=== PATIENT | male | born 1950 ===

== ENCOUNTER 2018-06-01 04:46 | Emergency (ER) | payer SELFPAY ==
[2018-06-01 04:46] VITALS: BMI 30.2
[2018-06-01 04:59] VITALS: PULSE 88; TEMP 98.2
[2018-06-01] MEDS ORDERED: oxyCODONE 10 mg ER Tab (oxyCONTIN) PO STA (05:19)
--- NOTE | 2018-06-01 05:23 | ED PDOC ---
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 Patient was unable to fill rx for oxycodone/oxycontin due to monetary funds. Otherwise denies any change in level of pain/fevers/chills/vomiting/etc.) Past Medical History Reviewed: Historical Data, Nursing Documentation, Vital Signs Vital Signs: Last Vital Signs Temp 98.2 F 06/01/18 04:57 Pulse 88 06/01/18 04:57 Resp 16 06/01/18 04:57 BP 108/65 06/01/18 04:57 Pulse Ox 95 06/01/18 04:57 - Medical History PMH: Pancreatitis Denies: Anxiety Other PMH: Cirrhosis. - Family History Family History: States: Unknown Family Hx - Immunization History Hx Tetanus Toxoid Vaccination: No Hx Influenza Vaccination: No Hx Pneumococcal Vaccination: No - Home Medications Home Medications: Ambulatory Orders Medication Instructions Recorded Docusate [Colace] 100 mg PO BID #60 cap 05/11/18 Lidocaine 5% [Lidoderm] 1 ea TD DAILY #30 patch 05/11/18 amLODIPine [Norvasc] 5 mg PO DAILY #30 tab 05/11/18 Ondansetron HCl [Zofran] 4 mg PO Q8H PRN #30 tablet 05/12/18 Dexamethasone [Decadron] 4 mg PO DAILY #30 tab 05/30/18 Fludrocortisone [Florinef] 0.1 mg PO DAILY #30 tab 05/30/18 oxyCODONE [oxyCODONE Immediate 10 mg PO Q4 PRN #84 tab 05/30/18 Release Tab] oxyCODONE [oxyCONTIN Extended 60 mg PO Q8H #42 tabsr 05/30/18 Release Tab] - Allergies Allergies/Adverse Reactions: Allergies Allergy/AdvReac Type Severity Reaction Status Date / Time No Known Allergies Allergy Verified 06/01/18 04:57 Review of Systems ROS Statement: Except As Marked, All Systems Reviewed And Found Negative Physical Exam - Reviewed Nursing Documentation Reviewed: Yes Vital Signs Reviewed: Yes - Physical Exam Appears: Positive for: Well, Non-toxic, No Acute Distress Head Exam: Positive for: ATRAUMATIC, NORMAL INSPECTION, NORMOCEPHALIC Skin: Positive for: Normal Color, Warm, DRY Eye Exam: Positive for: EOMI, Normal appearance, PERRL ENT: Positive for: Normal ENT Inspection Neck: Positive for: Normal, Painless ROM Cardiovascular/Chest: Positive for: Regular Rate, Rhythm Respiratory: Positive for: CNT, Normal Breath Sounds Gastrointestinal/Abdominal: Positive for: Normal Exam, Soft, Tenderness (left sided tenderness mild) Back: Positive for: Normal Inspection Extremity: Positive for: Normal ROM Neurologic/Psych: Positive for: Alert, Oriented - ECG O2 Sat by Pulse Oximetry: 95 - Progress ED Course And Treament: d/w Family med resident. They will call tomorrow to arrange for followup and assist socially. d/w patient that he can buy few pills at a time if medication is expensive. Will given one dose oxycontin 60mg / DECADRON 4MG/ FLORINEF 0.1MG in ED prior to d/c Disposition - Clinical Impression Clinical Impression: Adrenal hemorrhage - Patient ED Disposition Is Patient to be Admitted: No - Disposition Disposition: Routine/Home Disposition Time: 05:25 Condition: FAIR Additional Instructions: SHAKEEL DECADRON Y FLORINEF SHERRI GALVAN Instructions: Chronic Pain (DC) Print Language: KYRGYZ
[2018-06-01] MEDS ORDERED: oxyCODONE 20 mg ER Tab (oxyCONTIN) PO ONE (05:31)
[2018-06-01 06:16] VITALS: BP 121/78; RESP 20; O2SAT 96
== END 2018-06-01 06:31 | disposition home or self-care (01) ==
LOC: H.ER 04:46
DX: E27.49 Other adrenocortical insufficiency (principal); K74.60 Unspecified cirrhosis of liver; K85.90 Acute pancreatitis without necrosis or infection, unspecified
CPT/HCPCS: 99283; J8540

== ENCOUNTER 2018-06-04 09:46 | Observation (INO) | payer OTHER ==
[2018-06-04 09:52] VITALS: BMI 26.6
--- NOTE | 2018-06-04 10:53 | ED PDOC ---
HPI: Back Time Seen by Provider: 06/04/18 10:22 Chief Complaint (Nursing): Back Pain Chief Complaint (Provider): flank pain History Per: Patient (68 y/o male h/o adrenal mass with subsequent hemorrhage s/p biopsy here with ongoing abdominal pain uncontrolled by oxycontin/percocet at home. Notes vomiting. Denies any fevers/chills.) Past Medical History Reviewed: Historical Data, Nursing Documentation, Vital Signs Vital Signs: Last Vital Signs Temp 98 F 06/04/18 09:50 Pulse 82 06/04/18 09:50 Resp 22 06/04/18 09:50 BP 109/78 06/04/18 09:50 Pulse Ox 97 06/04/18 09:50 - Medical History PMH: Pancreatitis Denies: Anxiety - Family History Family History: States: Unknown Family Hx - Immunization History Hx Tetanus Toxoid Vaccination: No Hx Influenza Vaccination: No Hx Pneumococcal Vaccination: No - Home Medications Home Medications: Ambulatory Orders Medication Instructions Recorded Docusate [Colace] 100 mg PO BID #60 cap 05/11/18 Lidocaine 5% [Lidoderm] 1 ea TD DAILY #30 patch 05/11/18 amLODIPine [Norvasc] 5 mg PO DAILY #30 tab 05/11/18 Ondansetron HCl [Zofran] 4 mg PO Q8H PRN #30 tablet 05/12/18 Dexamethasone [Decadron] 4 mg PO DAILY #30 tab 05/30/18 Fludrocortisone [Florinef] 0.1 mg PO DAILY #30 tab 05/30/18 oxyCODONE [oxyCODONE Immediate 10 mg PO Q4 PRN #84 tab 05/30/18 Release Tab] oxyCODONE [oxyCONTIN Extended 60 mg PO Q8H #42 tabsr 05/30/18 Release Tab] - Allergies Allergies/Adverse Reactions: Allergies Allergy/AdvReac Type Severity Reaction Status Date / Time No Known Allergies Allergy Verified 06/01/18 04:57 Review of Systems ROS Statement: Except As Marked, All Systems Reviewed And Found Negative Physical Exam - Reviewed Nursing Documentation Reviewed: Yes Vital Signs Reviewed: Yes - Physical Exam Appears: Positive for: Well, Non-toxic, No Acute Distress Head Exam: Positive for: ATRAUMATIC, NORMAL INSPECTION, NORMOCEPHALIC Skin: Positive for: Normal Color, Warm, DRY Eye Exam: Positive for: EOMI, Normal appearance, PERRL ENT: Positive for: Normal ENT Inspection Neck: Positive for: Normal, Painless ROM Cardiovascular/Chest: Positive for: Regular Rate, Rhythm Respiratory: Positive for: CNT, Normal Breath Sounds Gastrointestinal/Abdominal: Positive for: Normal Exam, Soft Back: Positive for: Normal Inspection Extremity: Positive for: Normal ROM Neurologic/Psych: Positive for: Alert, Oriented - Laboratory Results Result Diagrams: 06/04/18 11:55 06/04/18 11:55 - ECG O2 Sat by Pulse Oximetry: 97 - Progress ED Course And Treament: MORPHINE 4 MG IV WITHOUT RELIEF DILAUDID 1 MG IV X 1 DOSE NS 1L ITER WIDE OPEN PATIENT STATES PERSISTENT PAIN AND VOMITING DESPITE MEDICATION. D/W HOSPITALIST DR. MARTINEZ CT ABD/PELVIS IMPRESSION: 1. Potential benign adrenal adenoma right adrenal gland 7.5 cm greatest dimension. Due to elevated initial precontrast density, malignancy is difficult to exclude. Chemical shift MRI is advised (without contrast) to exclude malignancy. 2. Large left adrenal favored over renal hemorrhagic mass of indeterminate origin. Associated left cece-mass and perinephric reactive changes without obstructive uropathy left kidney. Urological consultation is advised to exclude malignancy here. MRI will not likely be usual in attempting to determine ag gressive or nonaggressive nature of this lesion. 3. Gross hepatic cirrhosis with multifocal varices as discussed above. 4. Peritoneal lymphadenopathy suspicious for malignancy. 5. Cholelithiasis. 6. Nonspecific ground-glass opacity right middle and lower lobes. Disposition - Clinical Impression Clinical Impression: Abdominal pain - Patient ED Disposition Is Patient to be Admitted: Yes - Disposition Disposition Time: 20:43 Condition: FAIR - Pt Status Changed To: Hospital Disposition Of: Observation
[2018-06-04] MEDS ORDERED: Iohexol 240 (50 ml) PO STA (10:57)
[2018-06-04] MEDS ORDERED: Sodium Chloride 0.9% 1,000 ML IV STA ×2 (10:59→20:42)
[2018-06-04] MEDS ORDERED: Morphine 4 MG/ML VIAL ONE (11:19)
[2018-06-04] MEDS ORDERED: Iohexol 240 (50 ml) ONE (11:19)
[2018-06-04 12:15] LABS: EOS % 0.2 % (0.0-4.0); HEMOGLOBIN 11.8 g/dL (12.0-18.0); LYMPH # 0.9 K/uL (1.0-4.3); LYMPH % 9.2 % (20.0-40.0); MEAN CELL VOLUME 91.2 fl (80.0-94.0); MEAN CORPUSCULAR HEMOGLOBIN 30.8 pg (27.0-31.0); MEAN CORPUSCULAR HGB CONC 33.8 g/dL (33.0-37.0); MEAN PLATELET VOLUME 8.4 fl (7.2-11.7); MONO # 0.9 K/uL (0.0-0.8); MONO % 9.6 % (0.0-10.0); NEUT # 7.8 K/uL (1.8-7.0); NRBC % 0.2 % (0.0-0.0); PLATELET COUNT 136 K/uL (130-400); RBC 3.83 Mil/uL (4.40-5.90); RED CELL DISTRIBUTION WIDTH 15.2 % (11.5-14.5); WHITE BLOOD COUNT 9.6 K/uL (4.8-10.8)
[2018-06-04 12:20] LABS: ALB/GLOB RATIO 0.6 (1.0-2.1); ALBUMIN 2.8 g/dL (3.5-5.0); ALT/SGPT 50 U/L (21-72); AST/SGOT 70 U/L (17-59); BLOOD UREA NITROGEN 21 mg/dl (9-20); GFR NON-AFRICAN AMERICAN > 60; LIPASE 38 U/L (23-300)
[2018-06-04 13:23] LABS: LYMPHOCYTE 7 % (20-50); MONOCYTE 11 % (0-10); NEUTROPHIL 82 % (42-75); PLATELET ESTIMATE SLIGHTLY DECREASED (NORMAL); TOTAL CELLS COUNTED 100
[2018-06-04 13:24] LABS: ANISOCYTOSIS SLIGHT; OVALOCYTES SLIGHT
[2018-06-04 13:25] LABS: LARGE PLATELETS PRESENT
[2018-06-04] MEDS ORDERED: Sodium Chloride 0.9% 50 ML IV ONE (14:01)
[2018-06-04] MEDS ORDERED: Iohexol 300 100 ML IJ ONE (14:01)
--- NOTE | 2018-06-04 17:09 | CT ---
Date of service: 06/04/2018 PROCEDURE: CT Abdomen and Pelvis with and without intravenous contrast HISTORY: adrenal mass w/hemorrhage incr in pain COMPARISON: None. TECHNIQUE: Axial images of the abdomen were obtained in the pre contrast, portal venous and delayed phases of enhancement. Coronal and sagittal reformats were generated. Contrast dose: Omnipaque 300, 95 cc Radiation dose: Total exam DLP = 2230.25 mGy-cm. This CT exam was performed using one or more of the following dose reduction techniques: Automated exposure control, adjustment of the mA and/or kV according to patient size, and/or use of iterative reconstruction technique. FINDINGS: LOWER THORAX: Ground-glass opacity is seen at the right lower lobe and minimally at the base of the right middle lobe with the left lung remarkable only for dependent atelectasis. No pleural effusion. Minimal pericardial effusion appreciated inferiorly. Small hiatal hernia is encountered. LIVER: Gross peripheral nodularity and mild hepatic parenchymal inhomogeneity is compatible with cirrhotic liver. Gastrohepatic, splenorenal and esophageal varices are identified compatible with hepatofugal blood flow. No definitive hepatic mass appreciable. GALLBLADDER AND BILE DUCTS: Cholelithiasis identified within a distended gallbladder without mural thickening or pericholecystic fluid collection accompanying it. No prominence of the common bile duct identified. PANCREAS: Pancreas is intrinsically unremarkable but is displaced anteriorly by a large mass likely related to left adrenal gland though this may be exophytic off the upper pole left kidney (not favored). No definite intrinsic SPLEEN: Mass appreciated grossly. ADRENALS: RIGHT ADRENAL GLAND: The right adrenal gland is enlarged measuring 4.2 x 7.5 x 6.0 cm and appears relatively homogeneous in density and measures 37 Hounsfield units prior to contrast administration. It measures 40 Hounsfield units in the 30 sec delay post intravenous contrast administration and 47 Hounsfield units after an additional 5 min. Its peripheral margins are smooth. Malignancy is not excluded and the pattern is not typical for benign adenoma although this could be a very low fat content adrenal adenoma nevertheless. Calcific MRI is recommended (without contrast) to evaluate for possible benign adrenal adenoma. LEFT ADRENAL GLAND: Adrenal gland is likely enlarged to 11.1 x 12.1 x 13.3 cm with limited cece-mass reactive change accounting for the patient's symptoms. Heterogeneous signal intensity is appreciated in both preliminary and post contrast sequences, however, there is no significant change in density measurements with preliminary density of 53 HU and early contrast enhancement density of 52 HU and delayed, density of proximally 58 HU. Similar to the right adrenal gland mass, the ultimate diagnosis indeterminate. The pattern of heterogeneity in density is likely a function of adrenal hemorrhage within pre-existing mass, potentially a benign adrenal adenoma. The presence of retroperitoneal lymphadenopathy, urological consultation is recommended for potential tissue diagnosis. KIDNEYS AND URETERS: No suspicious mass or obstructive uropathy is appreciated the right kidney with the left kidney exhibiting normal renal excretory function and enhancement. Peripheral reactive changes seen associate with the left kidney presumably from left upper retroperitoneal mass presumed due to adrenal rather than renal mass. Please see left renal discussion above. Limited possibility that this is an exophytic mass off the upper to mid pole left kidney. VASCULATURE: Unremarkable. No aortic aneurysm. BOWEL: Unremarkable. No obstruction. No gross mural thickening. APPENDIX: Normal appendix. Six point PERITONEUM: Unremarkable. No free fluid. No free air. LYMPH NODES: Moderate retroperitoneal lymphadenopathy is appreciated including an aortic caval lymph node measuring 3.4 x 3.1 cm and adjacent enlarged lymph nodes with the next largest measuring 2.7 cm. Finally, a left perirenal lymph node measures 2.7 x 3.5 cm potentially. Alternately, this may represent a segment of isolated splenorenal varix. BLADDER: Unremarkable. REPRODUCTIVE: Enlarged prostate gland. BONES: No acute fracture. OTHER FINDINGS: None. IMPRESSION: 1. Potential benign adrenal adenoma right adrenal gland 7.5 cm greatest dimension. Due to elevated initial precontrast density, malignancy is difficult to exclude. Chemical shift MRI is advised (without contrast) to exclude malignancy. 2. Large left adrenal favored over renal hemorrhagic mass of indeterminate origin. Associated left cece-mass and perinephric reactive changes without obstructive uropathy left kidney. Urological consultation is advised to exclude malignancy here. MRI will not likely be usual in attempting to determine aggressive or nonaggressive nature of this lesion. 3. Gross hepatic cirrhosis with multifocal varices as discussed above. 4. Peritoneal lymphadenopathy suspicious for malignancy. 5. Cholelithiasis. 6. Nonspecific ground-glass opacity right middle and lower lobes.
[2018-06-04 20:38] LABS: SQUAMOUS EPITHIAL < 1 /hpf (0-5); URINE BACTERIA RARE (<OCC); URINE BILIRUBIN NEGATIVE (NEGATIVE); URINE BLOOD NEGATIVE (NEGATIVE); URINE CLARITY SLIGHTY-CLOUDY (Clear); URINE COLOR YELLOW (YELLOW); URINE GLUCOSE (UA) NEG (Normal); URINE LEUKOCYTE ESTERASE NEG Leu/uL (Negative); URINE PROTEIN NEGATIVE (NEGATIVE)
--- NOTE | 2018-06-04 21:05 | CP.PCM.HP ---
Addendum entered and electronically signed by Johann Hernandez MD 06/04/18 22:58: I saw and examined this patient and reviewed all relevant data. I discussed and formulated the plan with Dr. Tovar as detailed below. Briefly, patient comes in with intractable abd/flank pain, n/v. Imaging shows b/l adrenal masses and cirrhosis, which is consistent with information and imaging at [facility] earlier this month on 05/09. The patient had come with similar symptoms, had a workup of the masses that showed myogenic sarcoma, and oncology at the time indicated that there were no treatment options available. Patient was also believed to have adrenal insufficiency a the time and started on Decadron and Florinef. Original Note: History of Present Illness - History of Present Illness History of Present Illness: LINDSEY INT# [id number] CC: I have bad left side pain HPI: 68 y/o male, with PMHx remarkable for anemia, HTN, Liver Cirrhosis, Adrenal mass/hemorrhage (myogenic sarcoma?) and whom is status post bilateral adrenal biopsy on 05/19/2018 presented to ER for evaluation of constant left flank pain. Pain started after biopsy, and pt was prescribed pain meds (oxycodone 60mg SIMONA and 10mg PRN) but these have not been controlling his symptoms. There has been no improvement in the pain since discharge earlier this month. He has not followed up with a primary since. The pain became unbearable today, w/o much improvement with meds, so he came for evaluation. The pain is located at his left flank, is 10/10, constant, radiates to his abdomen and right back. It is mildly alleviated with his pain medications, but aggravated by activity or once the affects of his meds wear off. It is associated with nausea. He denies any fever/chills, CP/V/D, hematuria, urinary freq/dysuria/pyuria/urgency. No other complaints. 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), denies drugs FamilyHx: unknown ED Course: Vitals: T 98.0 F, BP 109/78, HR 82, POX 97% RA CBC: 9.6>11.8/35.0<136 CMP: Ca 8.0, AST: 70, BUN/Cr: 21/0.6 UA: elevated spec gravity, no WBC, no LE/Nit Lipase: WNL CT: large left adrenal mass, R adrenal adenoma, possible malignancy, hepatic cirrhosis, peritneal lymph adenopathy, cholelithiasis Meds: zofran, morphine 4mg, Diladid 1mg, 500mg NS bolus, 70mls/hr mx NS Present on Admission - Present on Admission Any Indicators Present on Admission: No History of DVT/PE: No History of Uncontrolled Diabetes: No Urinary Catheter: No Decubitus Ulcer Present: No Review of Systems - Review of Systems Review of Systems: as per HPI Past Patient History - Infectious Disease Hx of Infectious Diseases: None - Past Medical History & Family History Past Medical History?: No - Past Social History Smoking Status: Never Smoked - HEMATOLOGICAL/ONCOLOGICAL Hx Blood Disorders: Yes Hx Cirrhosis: Yes - MUSCULOSKELETAL/RHEUMATOLOGICAL Hx Musculoskeletal Disorders: Yes Hx Falls: Yes - GASTROINTESTINAL Hx Pancreatitis: Yes - PSYCHIATRIC Hx Anxiety: No - SURGICAL HISTORY Other/Comment: left kidney biopsy - ANESTHESIA Hx Anesthesia: No Meds Allergies/Adverse Reactions: Allergies Allergy/AdvReac Type Severity Reaction Status Date / Time No Known Allergies Allergy Verified 06/01/18 04:57 Physical Exam - Constitutional Appears: Non-toxic, No Acute Distress - Head Exam Head Exam: ATRAUMATIC, NORMOCEPHALIC - Eye Exam Eye Exam: EOMI. absent: Scleral icterus Pupil Exam: PERRL - ENT Exam ENT Exam: Mucous Membranes Moist - Neck Exam Neck exam: Negative for: Lymphadenopathy - Respiratory Exam Respiratory Exam: Clear to Auscultation Bilateral, NORMAL BREATHING PATTERN. absent: Accessory Muscle Use, Rales, Rhonchi, Wheezes, Respiratory Distress - Cardiovascular Exam Cardiovascular Exam: REGULAR RHYTHM, RRR, +S1, +S2. absent: Tachycardia, JVD, Rubs, Systolic Murmur - GI/Abdominal Exam GI & Abdominal Exam: Guarding (voluntary guarding ), Normal Bowel Sounds, Soft, Tenderness (left sided tenderness ). absent: Rebound, Rigid - Extremities Exam Extremities exam: Positive for: normal capillary refill, normal inspection, pedal pulses present. Negative for: pedal edema, tenderness - Back Exam Back exam: CVA tenderness (L) - Neurological Exam Neurological exam: Alert, CN II-XII Intact, Oriented x3, Reflexes Normal - Skin Skin Exam: Dry, Normal Color, Warm Results - Vital Signs Recent Vital Signs: Last Vital Signs Temp 98 F 06/04/18 09:50 Pulse 82 06/04/18 09:50 Resp 22 06/04/18 09:50 BP 109/78 06/04/18 09:50 Pulse Ox 97 06/04/18 20:44 - Labs Result Diagrams: 06/04/18 11:55 06/04/18 11:55 Labs: Laboratory Results - last 24 hr 06/04/18 06/04/18 06/04/18 11:55 11:55 19:58 WBC 9.6 RBC 3.83 L Hgb 11.8 L Hct 35.0 MCV 91.2 MCH 30.8 MCHC 33.8 RDW 15.2 H Plt Count 136 MPV 8.4 Neut % (Auto) 81.0 H Lymph % (Auto) 9.2 L Winn % (Auto) 9.6 Eos % (Auto) 0.2 Baso % (Auto) 0.0 Neut # (Auto) 7.8 H Lymph # (Auto) 0.9 L Winn # (Auto) 0.9 H Eos # (Auto) 0.0 Baso # (Auto) 0.0 Neutrophils % (Manual) 82 H Lymphocytes % (Manual) 7 L Monocytes % (Manual) 11 H Platelet Estimate Slightly decreased L Large Platelets Present Anisocytosis (manual) Slight Macrocytosis (manual) Slight Ovalocytes Slight Sodium 133 Potassium 4.2 Chloride 102 Carbon Dioxide 27 Anion Gap 8 L BUN 21 H Creatinine 0.6 L Est GFR ( Amer) > 60 Est GFR (Non-Af Amer) > 60 Random Glucose 79 Calcium 8.0 L Total Bilirubin 1.1 AST 70 H D ALT 50 Alkaline Phosphatase 85 Total Protein 7.6 Albumin 2.8 L Globulin 4.8 H Albumin/Globulin Ratio 0.6 L Lipase 38 Urine Color Yellow Urine Clarity Slighty-cloudy Urine pH 7.0 Ur Specific [place] 1.032 H Urine Protein Negative Urine Glucose (UA) Neg Urine Ketones Negative Urine Blood Negative Urine Nitrate Negative Urine Bilirubin Negative Urine Urobilinogen 4.0 Ur Leukocyte Esterase Neg Urine RBC (Auto) 3 Urine Microscopic WBC 1 Ur Squamous Epith Cells < 1 Urine Bacteria Rare Assessment & Plan - Assessment and Plan (Free Text) Assessment: 68 y/o male, with history of HTN, Liver Cirrhosis, B/L adrenal masses, Myogenic sarcoma, admitted for intractable left flank pain Plan: 1) Intractable Left flank pain -CT reviewed, no hematoma, no renal calculi -No signs of infection -pain control, start 2mg Diladud, titrate up, c/w home meds PRN -control N/V: Zofran IV PRN -consider pain management evaluation 2) Adrenal Mass/Myogenic Sarcoma/S/P adrenal Bx -reviewed prior admission at [facility], pt was worked up and was supposed to go to [place] for treatment but never went -seen by Hem/on at [facility] (Dr. Ferris), poorly differentiated, no chemo available, likely will need palliative care as per prior records -consider hem/onc 3) Hypocalcemia -8.0 -asympotmatic -ionized Ca pending 4) Anemia of Unknown Etiology -prior labs reviewed, Iron studies, B12, Folate all WNL -H/H: 11.8/35.0 -stable -monitor 5) Transaminasemia: -stable -monitor 6) History of Adrenal Insuff -evalauted by Dr Queen at [facility] -c/w with corticosteroid treatment as per med rec 7) Hypertension -chronic -controlled -c/w Amlodipine 5mg QD -monitor 8) Diet -regular 9) Prophylaxis -SCQs -Lovenox 40mg SC QD 10) Code status -full code
[2018-06-04] MEDS ORDERED: oxyCODONE 10 mg Immediate Release Tab PO PRN (21:09)
[2018-06-04] MEDS: oxyCODONE 20 mg ER Tab (oxyCONTIN) PO SCH (23:26)
[2018-06-05 00:05] VITALS: RESP 20
[2018-06-05] MEDS: oxyCODONE 20 mg ER Tab (oxyCONTIN) PO SCH ×3 (05:15→17:16)
[2018-06-05] MEDS ORDERED: oxyCODONE 5 mg Immediate Release Tab PO PRN (06:00)
[2018-06-05 06:31] LABS: HEMOGLOBIN 11.9 g/dL (12.0-18.0); MEAN CELL VOLUME 91.1 fl (80.0-94.0); MEAN CORPUSCULAR HEMOGLOBIN 30.9 pg (27.0-31.0); MEAN CORPUSCULAR HGB CONC 33.9 g/dL (33.0-37.0); RBC 3.83 Mil/uL (4.40-5.90); RED CELL DISTRIBUTION WIDTH 15.1 % (11.5-14.5); WHITE BLOOD COUNT 10.6 K/uL (4.8-10.8)
[2018-06-05 07:42] LABS: BLOOD UREA NITROGEN 16 mg/dl (9-20); CALCIUM 7.7 mg/dL (8.4-10.2); GFR NON-AFRICAN AMERICAN > 60
[2018-06-05] MEDS ORDERED: Lidocaine 5% Patch TD SCH (09:00)
[2018-06-05] MEDS ORDERED: Enoxaparin 40 mg Syringe SC SCH (09:00)
--- NOTE | 2018-06-05 12:44 | CP.PCM.DIS ---
Addendum entered and electronically signed by Rachelle Conway MD 06/05/18 14:05: Patient was seen and examined . All chart and clinical data reviewed . Care resumed . Case discussed with resident . Agree with assessment and discharge planning 68 y/o male was recently discharged from [facility] 05/30 after being worked up and diagnosed with ADRENAL GLAND CARCINOMA patient presented to ER with abdominal pain . He was placed under observation for pain management . At present hemodynamically stable, afebrile, pain is controlled , tolerating diet . Will discharge patient home on pain prescription for Oxycontin IR and Oxycodone ER Advice to follow up with [facility] as referred by [facility] Advised to get second opinion from [facility] [place] Will discharge patient home in replaced by [facility] econditions Original Note: Provider - Provider Date of Admission: 06/04/18 20:41 Attending physician: Johann Hernandez MD Primary care physician: None Consults: None Time Spent in preparation of Discharge (in minutes): 40 Diagnosis - Discharge Diagnosis (1) Acute abdominal pain in left flank Status: Acute Comment: S/p Left adrenal gland Bx in [facility] (2) Mass of both adrenal glands Status: Chronic Comment: Seen by Hem-Onc at [facility]. C/w follow ups and recommendations (3) Hypocalcemia Status: Chronic (4) Anemia of unknown etiology Status: Chronic (5) Transaminasemia Status: Chronic (6) Adrenal insufficiency Status: Chronic Comment: Evaluated by Dr. Queen at [facility]. C/w Dexamethasone 4 mg PO DAILY, Fludrocortisone 0.1 mg PO DAILY (7) Hypertension Status: Chronic Comment: c/w Amlodipine 5mg QD (8) Cirrhosis Status: Chronic Hospital Course - Lab Results Lab Results: Most Recent Lab Values WBC 10.6 K/uL (4.8-10.8) 06/05/18 05:45 RBC 3.83 Mil/uL (4.40-5.90) L 06/05/18 05:45 Hgb 11.9 g/dL (12.0-18.0) L 06/05/18 05:45 Hct 34.9 % (35.0-51.0) L 06/05/18 05:45 MCV 91.1 fl (80.0-94.0) 06/05/18 05:45 MCH 30.9 pg (27.0-31.0) 06/05/18 05:45 MCHC 33.9 g/dL (33.0-37.0) 06/05/18 05:45 RDW 15.1 % (11.5-14.5) H 06/05/18 05:45 Plt Count 118 K/uL (130-400) L 06/05/18 05:45 MPV 8.4 fl (7.2-11.7) 06/04/18 11:55 Neut % (Auto) 81.0 % (50.0-75.0) H 06/04/18 11:55 Lymph % (Auto) 9.2 % (20.0-40.0) L 06/04/18 11:55 Redwood % (Auto) 9.6 % (0.0-10.0) 06/04/18 11:55 Eos % (Auto) 0.2 % (0.0-4.0) 06/04/18 11:55 Baso % (Auto) 0.0 % (0.0-2.0) 06/04/18 11:55 Neut # (Auto) 7.8 K/uL (1.8-7.0) H 06/04/18 11:55 Lymph # (Auto) 0.9 K/uL (1.0-4.3) L 06/04/18 11:55 Redwood # (Auto) 0.9 K/uL (0.0-0.8) H 06/04/18 11:55 Eos # (Auto) 0.0 K/uL (0.0-0.7) 06/04/18 11:55 Baso # (Auto) 0.0 K/uL (0.0-0.2) 06/04/18 11:55 Neutrophils % (Manual) 82 % (42-75) H 06/04/18 11:55 Lymphocytes % (Manual) 7 % (20-50) L 06/04/18 11:55 Monocytes % (Manual) 11 % (0-10) H 06/04/18 11:55 Platelet Estimate Slightly decreased (NORMAL) L 06/04/18 11:55 Large Platelets Present 06/04/18 11:55 Anisocytosis (manual) Slight 06/04/18 11:55 Macrocytosis (manual) Slight 06/04/18 11:55 Ovalocytes Slight 06/04/18 11:55 Sodium 131 mmol/l (132-148) L 06/05/18 05:45 Potassium 4.9 MMOL/L (3.6-5.0) 06/05/18 05:45 Chloride 101 mmol/L (98-107) 06/05/18 05:45 Carbon Dioxide 25 mmol/L (22-30) 06/05/18 05:45 Anion Gap 10 (10-20) 06/05/18 05:45 BUN 16 mg/dl (9-20) 06/05/18 05:45 Creatinine 0.7 mg/dl (0.8-1.5) L 06/05/18 05:45 Est GFR ( Amer) > 60 06/05/18 05:45 Est GFR (Non-Af Amer) > 60 06/05/18 05:45 Random Glucose 75 mg/dL (75-110) 06/05/18 05:45 Calcium 7.7 mg/dL (8.4-10.2) L 06/05/18 05:45 Total Bilirubin 1.1 mg/dl (0.2-1.3) 06/04/18 11:55 AST 70 U/L (17-59) H D 06/04/18 11:55 ALT 50 U/L (21-72) 06/04/18 11:55 Alkaline Phosphatase 85 U/L (38-126) 06/04/18 11:55 Total Protein 7.6 G/DL (6.3-8.2) 06/04/18 11:55 Albumin 2.8 g/dL (3.5-5.0) L 06/04/18 11:55 Globulin 4.8 gm/dL (2.2-3.9) H 06/04/18 11:55 Albumin/Globulin Ratio 0.6 (1.0-2.1) L 06/04/18 11:55 Lipase 38 U/L (23-300) 06/04/18 11:55 Urine Color Yellow (YELLOW) 06/04/18 19:58 Urine Clarity Slighty-cloudy (Clear) 06/04/18 19:58 Urine pH 7.0 (5.0-8.0) 06/04/18 19:58 Ur Specific [place] 1.032 (1.003-1.030) H 06/04/18 19:58 Urine Protein Negative mg/dL (NEGATIVE) 06/04/18 19:58 Urine Glucose (UA) Neg mg/dL (Normal) 06/04/18 19:58 Urine Ketones Negative mg/dL (NEGATIVE) 06/04/18 19:58 Urine Blood Negative (NEGATIVE) 06/04/18 19:58 Urine Nitrate Negative (NEGATIVE) 06/04/18 19:58 Urine Bilirubin Negative (NEGATIVE) 06/04/18 19:58 Urine Urobilinogen 4.0 mg/dL (0.2-1.0) 06/04/18 19:58 Ur Leukocyte Esterase Neg Johnathan/uL (Negative) 06/04/18 19:58 Urine RBC (Auto) 3 /hpf (0-3) 06/04/18 19:58 Urine Microscopic WBC 1 /hpf (0-5) 06/04/18 19:58 Ur Squamous Epith Cells < 1 /hpf (0-5) 06/04/18 19:58 Urine Bacteria Rare (<OCC) 06/04/18 19:58 - Hospital Course Hospital Course: 68 y/o male with PMH of anemia, HTN, Liver Cirrhosis, Adrenal mass/hemorrhage (myogenic sarcoma), s/p bilateral adrenal biopsy on 05/19/18 admitted to [facility] for evaluation and treatment of nausea, vomiting and left flank abdominal pain which started since s/p biopsy. CT abdo:large left adrenal mass, R adrenal adenoma, possible malignancy, hepatic cirrhosis, peritneal lymph adenopathy, cholelithiasis. Patient was treated with Zofran, morphine and diladid. Patient reports significant improvement in symptoms, tolerating diet, ambulating, pain is well controlled. Patient discharged home with Percocet and instructions to follow up [facility] and c/w home medications Home Medications: C/w Dexamethasone 4 mg PO DAILY, Fludrocortisone 0.1 mg PO DAILY, and Amlodipine 5mg QD Rx given for: Percocet 30 tabs Discharge Exam - Head Exam Head Exam: ATRAUMATIC, NORMOCEPHALIC - Eye Exam Eye Exam: Normal appearance - ENT Exam ENT Exam: Mucous Membranes Moist - Respiratory Exam Respiratory Exam: Clear to PA & Lateral, NORMAL BREATHING PATTERN - Cardiovascular Exam Cardiovascular Exam: REGULAR RHYTHM, +S1, +S2 - GI/Abdominal Exam GI & Abdominal Exam: Normal Bowel Sounds, Soft. absent: Tenderness - Extremities Exam Extremities exam: normal inspection - Back Exam Back exam: CVA tenderness (L). absent: CVA tenderness (R) - Neurological Exam Neurological exam: Alert, CN II-XII Intact, Oriented x3, Reflexes Normal - Psychiatric Exam Psychiatric exam: Normal Affect - Skin Skin Exam: Normal Color Discharge Plan - Discharge Medications Prescriptions: oxyCODONE [oxyCODONE Immediate Release Tab] 10 mg PO Q4 PRN #30 tab PRN Reason: Pain, Severe (8-10) - Follow Up Plan Condition: FAIR Disposition: HOME/ ROUTINE Instructions: Soft Tissue Sarcoma, Acute Abdomen (Belly Pain), Adult (DC) Additional Instructions: [facility] [place], [place] Referrals: [facility] [place] [Outside]
[2018-06-05 16:08] VITALS: BP 108/70; PULSE 77; TEMP 97.7; O2SAT 95
== END 2018-06-05 18:05 | disposition home or self-care (01) ==
LOC: H.ER 09:46 → H.ERHOLD 20:41 → H.MEDSURG1 22:45
PROVIDERS: ADMIT Internal Medicine; ATTEND Internal Medicine
DX: C74.01 Malignant neoplasm of cortex of right adrenal gland (principal); D64.9 Anemia, unspecified; E83.51 Hypocalcemia; I10 Essential (primary) hypertension; K74.60 Unspecified cirrhosis of liver; K80.20 Calculus of gallbladder without cholecystitis without obstruction; Z87.891 Personal history of nicotine dependence; Z79.899 Other long term (current) drug therapy
CPT/HCPCS: 36415; 74178; 80048; 80053; 81003; 83690; 85025; 85027; 87086; 96374; 99285; G0378; J1170; J1650; J2270; J2405; J7030; J8540; Q9966; Q9967

== ENCOUNTER 2018-06-08 12:41 | Emergency (ER) | payer SELFPAY ==
[2018-06-08 12:41] VITALS: BMI 26.6
[2018-06-08] MEDS ORDERED: Morphine 4 MG/ML VIAL IVP ONE (13:18)
[2018-06-08] MEDS ORDERED: Sodium Chloride 0.9% 1,000 ML IV STA (13:19)
--- NOTE | 2018-06-08 13:29 | ED PDOC ---
HPI: Abdomen History Per: Patient Additional Complaint(s): 68 y/o M with a PMHx of Adrenal carcinoma, HTN, HTN, alcoholic cirrhosis and pancreatitis is brought by EMS due to severe bilateral flank pain and diffuse abdominal pain. Pt reports he has been having this pain for more than 2 months, intermittent, progressively aggravated until today that became unbearable, described more than 10/10 in intensity and associated with nausea but NO vomiting. Pt reports having a hard bowel movement yesterday after 10 days of NO bowel movement. Pt also reports noticing a mass on her R side neck a few days ago, painless, non-pruritic and not associated with dysphagia or odynophagia. Pt denies fever, chest pain, palpitations, SOB, vomiting, diarrhea, blood in stools, dysuria, urinary frequency, hematuria, Hx of kidney stones. 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 --CT abdomen 06/04/18: large left adrenal mass, R adrenal adenoma, possible malignancy, hepatic cirrhosis, peritneal lymph adenopathy, cholelithiasis. --Pt was recently discharged from this hospital 4 days ago with prescription for Oxycontin IR and Oxycodone ER. Pt was instructed to go to a cancer center but he never called or made an appointment. 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 Pt lives alone. <Chivo Lew - Last Filed: 06/08/18 17:37> <Kyle Richard - Last Filed: 06/08/18 18:54> Time Seen by Provider: 06/08/18 12:58 Chief Complaint (Nursing): Dizziness/Lightheaded Supervising Attending Note - Supervising Attending Note The Documented history was done by the: Physician Solar Energy Engineer The documented physical exam was done by the: Physician Solar Energy Engineer The documented procedures were done by the: Physician Solar Energy Engineer - Attestation: I have personally seen and examined this patient.: Yes I have fully participated in the care of the patient.: Yes I have reviewed all pertinent clinical information: Yes - Notes: Notes:: Abd pain chronic. <Kyle Richard M - Last Filed: 06/08/18 18:54> Past Medical History Vital Signs: Last Vital Signs Temp 97.7 F 06/08/18 12:48 Pulse 102 H 06/08/18 12:48 Resp 16 06/08/18 12:48 BP 96/68 L 06/08/18 12:48 Pulse Ox 96 06/08/18 12:48 - Medical History PMH: Anemia, HTN, Pancreatitis Denies: Anxiety - Family History Family History: States: Unknown Family Hx - Immunization History Hx Tetanus Toxoid Vaccination: No Hx Influenza Vaccination: No Hx Pneumococcal Vaccination: No <Chivo Lew - Last Filed: 06/08/18 17:37> Vital Signs: Last Vital Signs Temp 98.4 F 06/08/18 17:12 Pulse 97 H 06/08/18 17:12 Resp 16 06/08/18 17:12 BP 132/84 06/08/18 17:12 Pulse Ox 96 06/08/18 18:39 <Kyle Richard M - Last Filed: 06/08/18 18:54> - Home Medications Home Medications: Ambulatory Orders Medication Instructions Recorded Dexamethasone [Decadron] 4 mg PO DAILY #30 tab 06/05/18 Fludrocortisone [Florinef] 0.1 mg PO DAILY #30 tab 06/05/18 oxyCODONE [oxyCODONE Immediate 10 mg PO Q4 PRN #30 tab 06/05/18 Release Tab] oxyCODONE [oxyCONTIN Extended 40 mg PO Q8 #30 ter 06/05/18 Release Tab] - Allergies Allergies/Adverse Reactions: Allergies Allergy/AdvReac Type Severity Reaction Status Date / Time No Known Allergies Allergy Verified 06/01/18 04:57 Review of Systems Constitutional: Negative for: Fever Eyes: Negative for: Pain, Conjunctivae Inflammation ENT: Negative for: Ear Pain, Throat Pain Cardiovascular: Negative for: Chest Pain, Palpitations, Orthopnea Respiratory: Negative for: Cough, Shortness of Breath, Hemoptysis, Pleuritic Pain Gastrointestinal: Positive for: Nausea, Abdominal Pain, Constipation. Negative for: Vomiting, Diarrhea, Hematochezia Genitourinary Male: Negative for: Dysuria, Frequency, Hematuria, Penile Discharge, Rash Musculoskeletal: Positive for: Back Pain, Other (Positive for neck mass). Negative for: Neck Pain Skin: Negative for: Rash Neurological: Negative for: Numbness, Seizures, Altered Mental Status Psych: Negative for: Anxiety <Chivo Lew - Last Filed: 06/08/18 17:37> Physical Exam - Physical Exam Appears: Positive for: Uncomfortable Head Exam: Positive for: ATRAUMATIC, NORMAL INSPECTION Skin: Positive for: Dry Eye Exam: Positive for: Normal appearance, EOMI ENT: Negative for: Nasal Congestion, Pharyngeal Erythema, Tonsillar Swelling Neck: Positive for: Painless ROM, Supple. Negative for: Normal (Presence of remarkable large right sided neck mass, non-tender, round, mobile. ) Cardiovascular/Chest: Positive for: Regular Rate, Rhythm Respiratory: Positive for: Normal Breath Sounds Gastrointestinal/Abdominal: Positive for: Bowel Sounds (present), Soft, Tenderness (diffusively). Negative for: Distended, Guarding, Rebound Extremity: Positive for: Normal ROM Neurologic/Psych: Positive for: Alert, Oriented <Chivo Lew - Last Filed: 06/08/18 17:37> - Physical Exam Gastrointestinal/Abdominal: Positive for: Soft, Tenderness <Kyle Richard - Last Filed: 06/08/18 18:54> - Laboratory Results Result Diagrams: 06/08/18 13:39 06/08/18 13:39 - ECG O2 Sat by Pulse Oximetry: 96 <Chivo Lew - Last Filed: 06/08/18 17:37> - Laboratory Results Result Diagrams: 06/08/18 13:39 06/08/18 13:39 Interpretation Of Abn Labs: no acute - ECG Pulse Ox Interpretation: Normal - Progress ED Course And Treament: 1850: Dr. Conway made aware of pt. in Er. Well known to her service. States pt. needs to be on hospice. Has had extensive work up and had untreatable cancer. SW has consulted hospice who will be coming to the hospital Er today in 2 hrs. 1900: Stable. AAOx3. Dr. Arnett to take over care. Fu on hospice. <Kyle Richard - Last Filed: 06/08/18 18:54> Medical Decision Making Medical Decision Making: At 13:45, pt was evaluated and examined with Dr Richard. Pt seemed to be in disco mfort due to pain. R sided neck mass is predominant on inspection. --Will order bloodwork: CBC, CMP, lipase, serum alcohol level, urinalysis. --As per patient, new neck mass noticed a few days ago, CT of neck will be performed. --IV fluids, Zofran for nausea and Morphine for pain management. At 15:00, X-ray was reviewed, as recommended will order CT chest for further evaluation on mediastinal mass. --After reviewing his chart, oncology stated thera was no treatment available for him and recommended palliative care. --Pt complained of headache and posterior neck pain. Will administer another round of Morphine. At 17:15, CT of neck and chest was reviewed and results were discussed with patient. --Pt was extensively counseled on the current status of his disease. Pt reported verbally understanding that he has cancer in the gland above L kidney, and that this cancer is spreading to lungs and other organs. Pt was made aware that his health is deteriorating and he may soon. Pt was educated on the option of hospice program, and after an long discussion pt decided to accept hospice service. Pt was able to articulate understanding that he will not be able to receive any treatment for his malignancy and will only receive symptomatic management and comfort care while in hospice. Pt again stated he would prefer a hospice service. Pt was further educated that hospice program may involve care at home or specialized. AT 18:00, spoke to hospice management at [facility], will fax order for hospice service. A hospice nurse will come to evaluate patient tonight. <Chivo Lew - Last Filed: 06/08/18 17:37> Disposition <Chivo Lew - Last Filed: 06/08/18 17:37> - Patient ED Disposition Is Patient to be Admitted: Transfer of Care Counseled Patient/Family Regarding: Studies Performed, Diagnosis - Disposition Disposition Time: 18:53 Patient Signed Over To: Luis Fernando Arnett <Kyle Richard - Last Filed: 06/08/18 18:54> - Clinical Impression Clinical Impression: Chronic abdominal pain - Disposition Condition: FAIR
[2018-06-08] MEDS ORDERED: Morphine 4 MG/ML VIAL ONE ×2 (13:46→17:01)
[2018-06-08 13:54] LABS: HEMOGLOBIN 12.5 g/dL (12.0-18.0); WHITE BLOOD COUNT 9.3 K/uL (4.8-10.8)
[2018-06-08 13:55] LABS: BASO % 0.2 % (0.0-2.0); EOS % 0.4 % (0.0-4.0); LYMPH # 0.7 K/uL (1.0-4.3); LYMPH % 7.2 % (20.0-40.0); MEAN CELL VOLUME 90.6 fl (80.0-94.0); MEAN CORPUSCULAR HEMOGLOBIN 30.6 pg (27.0-31.0); MEAN CORPUSCULAR HGB CONC 33.8 g/dL (33.0-37.0); MEAN PLATELET VOLUME 7.4 fl (7.2-11.7); MONO # 0.9 K/uL (0.0-0.8); MONO % 9.8 % (0.0-10.0); NEUT # 7.7 K/uL (1.8-7.0); NEUT % 82.4 % (50.0-75.0); PLATELET COUNT 99 K/uL (130-400); RED CELL DISTRIBUTION WIDTH 15.4 % (11.5-14.5)
[2018-06-08 14:00] LABS: INR 1.4; PROTHROMBIN TIME 15.8 Seconds (9.8-13.1)
[2018-06-08 14:02] LABS: PARTIAL THROMBOPLASTIN TIME 29.1 Seconds (25.6-37.1)
[2018-06-08 14:13] LABS: ALB/GLOB RATIO 0.6 (1.0-2.1); ALBUMIN 2.8 g/dL (3.5-5.0); ALT/SGPT 43 U/L (21-72); AST/SGOT 63 U/L (17-59); BLOOD UREA NITROGEN 17 mg/dl (9-20); GFR NON-AFRICAN AMERICAN > 60; LIPASE 17 U/L (23-300)
--- NOTE | 2018-06-08 14:31 | RAD ---
Date of service: 06/08/2018 PROCEDURE: Radiographs of the chest and abdomen (obstructive series) HISTORY: Diffuse abdominal pain COMPARISON: No prior. TECHNIQUE: AP radiograph of the chest, with upright and supine radiographs of the abdomen. FINDINGS: CHEST: Lungs: No pulmonary infiltrate. Cardiovascular: Normal heart size. Right suprahilar/mediastinal mass for which further evaluation with contrast-enhanced computed tomography of the chest is advised. Differential diagnosis is extensive and includes neoplasm, aneurysm, lymphadenopathy. Pleura: No pleural fluid. No pneumothorax. Other findings: None. ABDOMEN AND PELVIS: Bowel: Unremarkable bowel gas pattern. No evidence of mechanical obstruction. Oral contrast seen in colon from prior recent CT examination. Free air: None. Bones: Unremarkable. Other findings: None. IMPRESSION: Right suprahilar/mediastinal mass. Further evaluation with contrast-enhanced computed tomography of the chest is advised.
[2018-06-08 14:44] LABS: LYMPHOCYTE 5 % (20-50); MONOCYTE 7 % (0-10); NEUTROPHIL 88 % (42-75); TOTAL CELLS COUNTED 100
[2018-06-08 14:45] LABS: PLATELET ESTIMATE DECREASED (NORMAL)
[2018-06-08 14:47] LABS: POIKILOCYTOSIS SLIGHT
[2018-06-08 14:48] LABS: BURR CELLS SLIGHT
--- NOTE | 2018-06-08 14:48 | CARD ---
APPROVED REPORT Date of service: 06/08/2018 EKG Measurement Heart [id number] <Conclusion> Normal sinus rhythm Right axis deviation Abnormal ECG
[2018-06-08] MEDS ORDERED: Iohexol 300 100 ML IJ ONE (15:54)
[2018-06-08] MEDS ORDERED: Sodium Chloride 0.9% 50 ML IV ONE (15:54)
--- NOTE | 2018-06-08 17:02 | CT ---
Date of service: 06/08/2018 PROCEDURE: CT Neck, Chest with contrast HISTORY: Mediastinal mass COMPARISON: 06/04/2018 TECHNIQUE: Contrast dose: 95 cc Omnipaque 300 Radiation dose: Total exam DLP = 900.66 mGy-cm. This CT exam was performed using one or more of the following dose reduction techniques: Automated exposure control, adjustment of the mA and/or kV according to patient size, and/or use of iterative reconstruction technique. FINDINGS: CT OF THE NECK: PHARYNX: Nasopharynx: Unremarkable. Oropharnx: Unremarkable. Hypopharynx: Unremarkable. LYMPH NODES: Cystic mass interposed between the right carotid sheath and right sternocleidomastoid muscle. Mean Hounsfield unit values 44. The mass measures 2.8 x 3.8 cm. Additional smaller enlarged lymph nodes identified at the same level on the contralateral side. Bulky scalene and supraclavicular lymphadenopathy. These findings are bilaterally. VASCULATURE: Unremarkable. GLANDS: Unremarkable. Cystic mass supraclavicular region impressing upon the left lobe of the thyroid. This mass measures 2.5 x 3.3 cm. CERVICAL SPINE: Unremarkable. CT OF THE CHEST: LUNGS: Multiple pulmonary nodules and masses consistent with metastatic disease. The largest in the posterior segment of the right upper lobe measures 1.7 x 1.8 cm. Faint infiltrates right middle lobe and right lower lobe likely related to compression upon the right middle lobe and lower lobe bronchi by massive adenopathy. MEDIASTINUM: Extensive mediastinal and hilar adenopathy. Multiple confluent partially necrotic masses in the superior and anterior mediastinum. Contiguous enlargement of masses extends to the subcarinal region. There is mass impression upon the airway at the level of the trachea and circumferential narrowing of lobar branches of the right middle and lower lobes. Tumor impresses upon the left atrium. Additional tumor nearly occludes the right main pulmonary artery and impresses upon the left main pulmonary artery. PLEURA: No pleural fluid. No pneumothorax. BONES: No fracture. No destructive lesion. Additional findings below the diaphragms: Bilateral adrenal metastasis left larger than right. Incompletely visualized cirrhotic liver. Cholelithiasis without CT evidence of acute cholecystitis. IMPRESSION: 1. Massive adenopathy in the neck described in greater detail above. 2. Extensive supraclavicular, scalene and bilateral axillary adenopathy. 3. Tumor masses impresses upon the superior vena cava, pulmonary arteries, left atrium, tracheobronchial tree. 4. Pulmonary metastatic disease. 5. Adrenal metastatic disease. 6. Cirrhotic liver. 7. Cholelithiasis without CT evidence of acute cholecystitis.
[2018-06-08] MEDS ORDERED: Morphine 4 MG/ML VIAL IV ONE (17:15)
[2018-06-08 17:22] LABS: SQUAMOUS EPITHIAL 2 /hpf (0-5); URINE BACTERIA RARE (<OCC); URINE BILIRUBIN NEGATIVE (NEGATIVE); URINE BLOOD NEGATIVE (NEGATIVE); URINE CLARITY SLIGHTY-CLOUDY (Clear); URINE COLOR YELLOW (YELLOW); URINE GLUCOSE (UA) NEG (Normal); URINE LEUKOCYTE ESTERASE SMALL Leu/uL (Negative); URINE PROTEIN NEGATIVE (NEGATIVE)
--- NOTE | 2018-06-08 19:15 | ED PDOC ---
- Laboratory Results Result Diagrams: 06/08/18 13:39 06/08/18 13:39 - ECG O2 Sat by Pulse Oximetry: 96 (RA) Pulse Ox Interpretation: Normal Medical Decision Making Medical Decision Making: Time: 7:00PM Patient was endorsed to my care by Dr. Richard pending Hospice Consult. 9:00PM (Poly Adaptive Portable Canteen Operator used, ID: [id number]) --Hospice nurse came and evaluated patient for potential hospice but states that because of insurance issues, gave recommendations for control of pain --Patient states he cannot go home because he rents a room from a woman and she took the keys with her to [facility], states his family is unable to come pick him up --Patient states he is still in pain, but may be able to walk with walker --Will keep patient in ER and provide pain medication in accordance with hospice nurse recommendations 11:30PM --Patient's step-daughter is at bedside and wants to take patient home --Patient agreeable to discharge with step-daughter --Patient had IR and ER oxycontin prescribed on 06/04 for 30 days --Advised patient to followup in Clinic Scribe Attestation: Documented by Sanna Rios, acting as a scribe for Luis Fernando Arnett MD. Provider Scribe Attestation: All medical record entries made by the Scribe were at my direction and perso osman dictated by me. I have reviewed the chart and agree that the record accurately reflects my personal performance of the history, physical exam, medical decision making, and the department course for this patient. I have also personally directed, reviewed, and agree with the discharge instructions and disposition. Disposition - Clinical Impression Clinical Impression: Chronic abdominal pain - POA Present On Arrival: None - Disposition Referrals: [facility] [Outside] Disposition: Routine/Home Disposition Time: 23:45 Condition: FAIR Instructions: Chronic Pain (DC) Forms: [employer] (Somali) Print Language: VENEZUELAN
[2018-06-08] MEDS ORDERED: Morphine 15 mg SR Tab PO STA (21:35)
[2018-06-08 22:36] VITALS: BP 128/76; PULSE 89; RESP 18; TEMP 98.1
[2018-06-08 22:41] VITALS: O2SAT 96
== END 2018-06-09 00:27 | disposition home or self-care (01) ==
LOC: H.ER 12:41
DX: R10.9 Unspecified abdominal pain (principal); G89.29 Other chronic pain; C78.00 Secondary malignant neoplasm of unspecified lung; C79.70 Secondary malignant neoplasm of unspecified adrenal gland; I10 Essential (primary) hypertension; K74.60 Unspecified cirrhosis of liver; Z87.891 Personal history of nicotine dependence
CPT/HCPCS: 70491; 71260; 74022; 80053; 81003; 83690; 84484; 85025; 85610; 85730; 93005; 96361; 96372; 96374; 96375; 96376; 99285; G0480; J1170; J2270; J2405; J7030; Q9967

== ENCOUNTER 2018-06-17 16:18 | Emergency (ER) | payer SELFPAY ==
[2018-06-17 16:18] VITALS: BMI 26.6
[2018-06-17] MEDS ORDERED: Sodium Chloride 0.9% 1,000 ML IV STA (16:42)
--- NOTE | 2018-06-17 17:03 | ED PDOC ---
HPI: Back Time Seen by Provider: 06/17/18 16:30 Chief Complaint (Nursing): Weakness/Neurological Deficit Chief Complaint (Provider): Back Pain History Per: Patient History/Exam Limitations: no limitations Onset/Duration Of Symptoms: Days Current Symptoms Are (Timing): Still Present Quality Of Discomfort: "Pain" Additional Complaint(s): 68 year old male was brought to the ER via EMS for an evaluation of chronic lower back pain which is stronger than before, end stage adrenal carcinoma and ecchymosis. Patient took medicine but he does not know the name. Also complains of chest pain. Denies fever, abdominal pain, diarrhea, nausea or vomiting. PMD: Non [facility] Provider Past Medical History Reviewed: Historical Data, Nursing Documentation, Vital Signs Vital Signs: Last Vital Signs Temp Pulse 104 H 06/17/18 16:19 Resp 18 06/17/18 16:19 BP 97/75 L 06/17/18 16:19 Pulse Ox 97 06/17/18 16:19 - Medical History PMH: Anemia, HTN, Pancreatitis Denies: Anxiety - Family History Family History: States: Unknown Family Hx - Immunization History Hx Tetanus Toxoid Vaccination: No Hx Influenza Vaccination: No Hx Pneumococcal Vaccination: No - Home Medications Home Medications: Ambulatory Orders Medication Instructions Recorded Dexamethasone [Decadron] 4 mg PO DAILY #30 tab 06/05/18 Fludrocortisone [Florinef] 0.1 mg PO DAILY #30 tab 06/05/18 oxyCODONE [oxyCODONE Immediate 10 mg PO Q4 PRN #30 tab 06/05/18 Release Tab] oxyCODONE [oxyCONTIN Extended 40 mg PO Q8 #30 ter 06/05/18 Release Tab] oxyCODONE [oxyCODONE Immediate 10 mg PO Q4 PRN #20 tab 06/18/18 Release Tab] - Allergies Allergies/Adverse Reactions: Allergies Allergy/AdvReac Type Severity Reaction Status Date / Time No Known Allergies Allergy Verified 06/01/18 04:57 Review of Systems ROS Statement: Except As Marked, All Systems Reviewed And Found Negative Constitutional: Negative for: Fever Cardiovascular: Positive for: Chest Pain Gastrointestinal: Negative for: Nausea, Vomiting, Abdominal Pain, Diarrhea Musculoskeletal: Positive for: Back Pain Psych: Negative for: Suicidal ideation (homicidal ideation) Physical Exam - Reviewed Nursing Documentation Reviewed: Yes Vital Signs Reviewed: Yes - Physical Exam Appears: Positive for: Non-toxic, In Acute Distress Head Exam: Positive for: ATRAUMATIC, NORMAL INSPECTION, NORMOCEPHALIC Skin: Positive for: Normal Color, Warm, Dry. Negative for: Rash Eye Exam: Positive for: EOMI, Normal appearance, PERRL ENT: Positive for: Normal ENT Inspection, Other (dry mucus membrane ) Neck: Positive for: Normal, Painless ROM, Supple. Negative for: Decreased ROM Cardiovascular/Chest: Positive for: Regular Rate, Rhythm. Negative for: Murmur Respiratory: Positive for: Normal Breath Sounds. Negative for: Decreased Breath Sounds, Wheezing, Respiratory Distress Back: Positive for: L CVA Tenderness (moderate pain ) Extremity: Positive for: Other (Ecchymosis to both buttock and right posterior knee to leg (patient does not remember falling or where it came from)) Neurologic/Psych: Positive for: Alert, Oriented (x3). Negative for: Motor/Sensory Deficits - Laboratory Results Result Diagrams: 06/17/18 17:10 06/17/18 20:14 - ECG O2 Sat by Pulse Oximetry: 97 (RA) Pulse Ox Interpretation: Normal Medical Decision Making Medical Decision Making: Time: 1641 --EKG --CMP --ED Urine --CBC w/ Differential --PTT --Prothrombin Time --Morphine 2mg --Normal Saline 1000 mls/hr --Glucose, Blood, POC --Urinalysis --Reevaluation Upon review of patients reports, initial pain was to place patient in hospice due to adrenal carcinoma, however due to insurance, hospice was not an option and patient was sent home. Scribe Attestation: Documented by Hetal Adam, acting as a scribe for Lisa Romero MD Provider Scribe Attestation: All medical record entries made by the Scribe were at my direction and personally dictated by me. I have reviewed the chart and agree that the record accurately reflects my personal performance of the history, physical exam, medical decision making, and the department course for this patient. I have also personally directed, reviewed, and agree with the discharge instructions and disposition Disposition - Clinical Impression Clinical Impression: Neoplasm related pain (acute) (chronic) - Disposition Referrals: [facility] [Outside] Disposition: Transfer of Care Disposition Time: 00:00 Condition: STABLE Prescriptions: oxyCODONE [oxyCODONE Immediate Release Tab] 10 mg PO Q4 PRN #20 tab PRN Reason: Pain, Severe (8-10) Instructions: Cancer Pain Syndromes (DC), Managing Pain When You Have Cancer Forms: [employer] (Setswana) Print Language: MARSHALLESE Patient Signed Over To: Luis Fernando Arnett
[2018-06-17 17:19] LABS: BASO % 0.2 % (0.0-2.0); EOS # 0.1 K/uL (0.0-0.7); EOS % 0.6 % (0.0-4.0); HEMOGLOBIN 11.1 g/dL (12.0-18.0); LYMPH # 1.2 K/uL (1.0-4.3); LYMPH % 12.1 % (20.0-40.0); MEAN CELL VOLUME 95.9 fl (80.0-94.0); MEAN CORPUSCULAR HEMOGLOBIN 31.5 pg (27.0-31.0); MEAN CORPUSCULAR HGB CONC 32.9 g/dL (33.0-37.0); MEAN PLATELET VOLUME 7.7 fl (7.2-11.7); MONO # 1.3 K/uL (0.0-0.8); NEUT # 7.3 K/uL (1.8-7.0); NEUT % 74.1 % (50.0-75.0); NRBC % 0.3 % (0.0-0.0); RBC 3.52 Mil/uL (4.40-5.90); WHITE BLOOD COUNT 9.8 K/uL (4.8-10.8)
[2018-06-17 20:36] LABS: ALB/GLOB RATIO 0.6 (1.0-2.1); ALBUMIN 2.7 g/dL (3.5-5.0); ALT/SGPT 29 U/L (21-72); AST/SGOT 112 U/L (17-59); BLOOD UREA NITROGEN 48 mg/dl (9-20); CALCIUM 8.2 mg/dL (8.4-10.2); GFR NON-AFRICAN AMERICAN > 60
--- NOTE | 2018-06-17 23:03 | CARD ---
APPROVED REPORT Date of service: 06/17/2018 EKG Measurement Heart [id number] <Conclusion> Sinus tachycardia Rightward axis Nonspecific ST abnormality Abnormal ECG
--- NOTE | 2018-06-18 06:50 | ED PDOC ---
- Laboratory Results Result Diagrams: 06/17/18 17:10 06/17/18 20:14 - ECG O2 Sat by Pulse Oximetry: 96 Pulse Ox Interpretation: Normal Medical Decision Making Medical Decision Makin PAtient endorsed to be by Dr. Romero pending re-eval in AM for discharge 0300 Patient resting comfortably [address] Peterson pending re-eval. Disposition - Clinical Impression Clinical Impression: Neoplasm related pain (acute) (chronic) - POA Present On Arrival: None - Disposition Referrals: [facility] [Outside] Disposition: Transfer of Care Disposition Time: 07:00 Condition: STABLE Instructions: Cancer Pain Syndromes (DC), Managing Pain When You Have Cancer Forms: [employer] ([place]) Print Language: KITTITIAN Patient Signed Over To: Michael Peterson III Handoff Comments: pending re-eval
--- NOTE | 2018-06-18 07:10 | ED PDOC ---
- Laboratory Results Result Diagrams: 06/17/18 17:10 06/17/18 20:14 - ECG O2 Sat by Pulse Oximetry: 96 Medical Decision Making Medical Decision Makinam received pending re-eval and dispo. Hospice eval in ED, not recommended or available for inpatient or outpatient care Discussed with patients sister and niece, they state they have a hard time caring for him. They state his is in [facility] and want him to return there, hoping for arrangements back to [facility] soon. Pt given additional pain medicine and Rx oxycodone for chronic pain. DC from ED to care of family. MARIA DEL CARMEN Forman spoke to family on phone. Disposition - Clinical Impression Clinical Impression: Neoplasm related pain (acute) (chronic) - POA Present On Arrival: None - Disposition Referrals: [facility] [Outside] Disposition: Routine/Home Disposition Time: 08:30 Condition: STABLE Prescriptions: oxyCODONE [oxyCODONE Immediate Release Tab] 10 mg PO Q4 PRN #20 tab PRN Reason: Pain, Severe (8-10) Instructions: Cancer Pain Syndromes (DC), Managing Pain When You Have Cancer Forms: [employer] (Pashto) Print Language: SYRIAN
[2018-06-18] MEDS ORDERED: Morphine 4 MG/ML VIAL ONE (09:37)
--- NOTE | 2018-06-18 10:21 | RAD ---
PROCEDURE: Right Hip with pelvis radiographs. HISTORY: Ecchymosis COMPARISON: None. FINDINGS: BONES: No acute fracture or destructive bony lesion identified. JOINTS: Degenerative sclerosis appreciate bilateral hip joints [id number]. Sacroiliac joints appear unremarkable bilaterally. No subluxation or dislocation right hip joint. Pubic symphysis appears intact as well as remaining pubic bony anatomy. SOFT TISSUES: Limited retained fecal material seen in the distal rectosigmoid. OTHER FINDINGS: None. IMPRESSION: No acute fracture right hip joint or the pelvic ring. Degenerative changes seen the bilateral hip joints [id number].
--- NOTE | 2018-06-18 10:22 | RAD ---
Date of service: 06/17/2018 PROCEDURE: RIGHT FEMUR RADIOGRAPHS HISTORY: Ecchymosis COMPARISON: None TECHNIQUE: Multiple views of the right femur been submitted for interpretation. FINDINGS: No fracture or destructive bony lesion is identified. Local soft tissues appear grossly nonfocal. Right femoral neck as well as intertrochanteric space appear unremarkable. IMPRESSION: No acute fracture or destructive bony lesion identified throughout the right femur.
--- NOTE | 2018-06-18 10:23 | RAD ---
Date of service: 06/17/2018 PROCEDURE: CHEST RADIOGRAPH, 1 VIEW HISTORY: Pain COMPARISON: None available. FINDINGS: LUNGS: Right hilar/suprahilar mass identified. Left hemidiaphragm is silhouetted at the medial base suggestive of possible medial basilar infiltrate or atelectasis. No right-sided infiltrate. PLEURA: No pneumothorax or pleural fluid seen. CARDIOVASCULAR: Normal. OSSEOUS STRUCTURES: No significant abnormalities. VISUALIZED UPPER ABDOMEN: Normal. OTHER FINDINGS: None. IMPRESSION: 1. Right hilar/suprahilar mass identified. Follow-up chest CT advised if not already evaluated. 2. Medial left basilar atelectasis or infiltrate not excluded with none seen at the right.
[2018-06-18 19:29] VITALS: BP 109/60; PULSE 78; RESP 15; TEMP 97.8
[2018-06-27 12:04] VITALS: O2SAT 97
== END 2018-06-18 18:35 | disposition home or self-care (01) ==
LOC: H.ER 16:18
DX: G89.3 Neoplasm related pain (acute) (chronic) (principal)
CPT/HCPCS: 71045; 73501; 73551; 80053; 82948; 85025; 93005; 99285; J2270; J7030

== ENCOUNTER 2018-06-21 21:03 | Inpatient (IN) | payer MEDICAID, OTHER ==
[2018-06-21 21:04] VITALS: BMI 26.6
--- NOTE | 2018-06-21 21:28 | ED PDOC ---
HPI: General Adult Time Seen by Provider: 06/21/18 21:15 Chief Complaint (Nursing): Fever Chief Complaint (Provider): bodyaches History Per: Patient Additional Complaint(s): 68-year-old male with history of end-stage renal carcinoma presents with generalized body aches and fever since yesterday. Patient was seen recently in ED and was evaluated for possible hospice care but does not qualify for inpatient hospice care at this time. Patient's sister called ambulance this evening for patient to be brought here secondary to shortness of breath and home and severe body pain. Patient's states his entire body hurts and he feels nauseous. Patient has been taking oxycodone 10 mg tablets every 4 hrs but this has not helped the pain. Past Medical History Reviewed: Historical Data, Nursing Documentation, Vital Signs Vital Signs: Last Vital Signs Temp 97.7 F 06/21/18 21:05 Pulse 90 06/21/18 21:05 Resp 18 06/21/18 21:05 BP 83/48 L 06/21/18 21:05 Pulse Ox 99 06/21/18 21:05 - Medical History PMH: Anemia, HTN, Pancreatitis - Family History Family History: States: No Known Family Hx - Living Arrangements Living Arrangements: With Family - Immunization History Hx Tetanus Toxoid Vaccination: No Hx Influenza Vaccination: No Hx Pneumococcal Vaccination: No - Home Medications Home Medications: Ambulatory Orders Medication Instructions Recorded Dexamethasone [Decadron] 4 mg PO DAILY #30 tab 06/05/18 Fludrocortisone [Florinef] 0.1 mg PO DAILY #30 tab 06/05/18 oxyCODONE [oxyCODONE Immediate 10 mg PO Q4 PRN #30 tab 06/05/18 Release Tab] oxyCODONE [oxyCONTIN Extended 40 mg PO Q8 #30 ter 06/05/18 Release Tab] oxyCODONE [oxyCODONE Immediate 10 mg PO Q4 PRN #20 tab 06/18/18 Release Tab] - Allergies Allergies/Adverse Reactions: Allergies Allergy/AdvReac Type Severity Reaction Status Date / Time No Known Allergies Allergy Verified 06/01/18 04:57 Review of Systems ROS Statement: Except As Marked, All Systems Reviewed And Found Negative Constitutional: Positive for: Chills, Weakness, Other (bodyaches) Cardiovascular: Positive for: Chest Pain Respiratory: Positive for: Shortness of Breath Gastrointestinal: Positive for: Abdominal Pain Neurological: Positive for: Headache, Dizziness Physical Exam - Reviewed Nursing Documentation Reviewed: Yes Vital Signs Reviewed: Yes - Physical Exam Appears: Positive for: Well, Non-toxic, No Acute Distress Skin: Positive for: Normal Color. Negative for: Rash Eye Exam: Positive for: Normal appearance Cardiovascular/Chest: Positive for: Regular Rate, Rhythm Respiratory: Positive for: Normal Breath Sounds Gastrointestinal/Abdominal: Positive for: Tenderness (diffuse) Back: Positive for: L CVA Tenderness, R CVA Tenderness, Vertebral Tenderness Extremity: Positive for: Normal ROM, Pedal Edema Neurologic/Psych: Positive for: Alert, Oriented - Laboratory Results Result Diagrams: 06/21/18 21:50 06/21/18 21:50 - ECG Interpretation Of ECG: NSR 87 bpm, no acute finding, reviewed by PA and ED attending O2 Sat by Pulse Oximetry: 99 Pulse Ox Interpretation: Normal Medical Decision Making Medical Decision Makin68 year old male with bodyaches in the setting of end stage adrenal carcinoma Previous records indicated patient was seen by dairy bar manager and oncologist and determined that his cancer is untreatable at this time. Previous records also indicate patient was evaluated by inpatient hospice nurse states that patient does not qualify for inpatient hospice care and recommended oral pain management. She was discharged from ED on 10:15 and returns today with worsening symptoms. Patient's sister called ambulance this evening for patient to come to ED to receive pain medication. Plan: CBC CMP Lipase IVF IV zofran 10:00 pm: Patient's daughter, sisters and niece are at bedside. Extensive conversation had with the family regarding patient's prognosis. Patient has carcinoma that has been deemed untreatable. Family wishes to render patient DNR/DNI which is also what patient desires. Case was discussed in detail with ED attending Dr. Richard. Patient will be admitted to hospital service for comfort care. Family agrees with plan. Disposition - Clinical Impression Clinical Impression: Neoplasm related pain (acute) (chronic), Intractable pain, Weakness - Patient ED Disposition Is Patient to be Admitted: Yes - Disposition Disposition Time: 01:25 Condition: GUARDED Instructions: Weakness (ED) Forms: [employer] (French) - Pt Status Changed To: Hospital Disposition Of: Inpatient - Admit Certification Admit to Inpatient:: After my assessment, the patient will require hospitalization for at least two midnights. This is because of the severity of symptoms shown, intensity of services needed, and/or the medical risk in this patient being treated as an outpatient. Results - Lab Results Lab Results: 06/21/18 06/21/18 06/21/18 21:50 21:50 21:50 WBC 8.3 RBC 3.14 L Hgb 10.3 L Hct 31.9 L MCV 101.4 H D MCH 32.8 H MCHC 32.3 L RDW 23.1 H Plt Count 99 L MPV 8.2 Neut % (Auto) 71.8 Lymph % (Auto) 13.4 L [place] % (Auto) 13.6 H Eos % (Auto) 1.0 Baso % (Auto) 0.2 Neut # (Auto) 6.0 Lymph # (Auto) 1.1 [place] # (Auto) 1.1 H Eos # (Auto) 0.1 Baso # (Auto) 0.0 Sodium 132 Potassium 5.7 H Chloride 101 Carbon Dioxide 18 L Anion Gap 19 BUN 88 H Creatinine 2.3 H Est GFR ( Amer) 34 Est GFR (Non-Af Amer) 28 Random Glucose 60 L Lactic Acid 2.8 H Calcium 7.9 L Total Bilirubin 5.0 H AST 151 H D ALT 31 Alkaline Phosphatase 64 Total Protein 7.6 Albumin 2.9 L Globulin 4.7 H Albumin/Globulin Ratio 0.6 L Lipase 66
[2018-06-21] MEDS ORDERED: Sodium Chloride 0.9% 1,000 ML IV STA ×2 (21:32→22:36)
[2018-06-21] MEDS ORDERED: Morphine 4 MG/ML VIAL ONE (21:58)
[2018-06-21 22:02] LABS: BASO % 0.2 % (0.0-2.0); EOS # 0.1 K/uL (0.0-0.7); HEMOGLOBIN 10.3 g/dL (12.0-18.0); LYMPH # 1.1 K/uL (1.0-4.3); LYMPH % 13.4 % (20.0-40.0); MEAN CELL VOLUME 101.4 fl (80.0-94.0); MEAN CORPUSCULAR HEMOGLOBIN 32.8 pg (27.0-31.0); MEAN CORPUSCULAR HGB CONC 32.3 g/dL (33.0-37.0); MEAN PLATELET VOLUME 8.2 fl (7.2-11.7); MONO # 1.1 K/uL (0.0-0.8); MONO % 13.6 % (0.0-10.0); NEUT % 71.8 % (50.0-75.0); NRBC % 0.6 % (0.0-0.0); RBC 3.14 Mil/uL (4.40-5.90); RED CELL DISTRIBUTION WIDTH 23.1 % (11.5-14.5); WHITE BLOOD COUNT 8.3 K/uL (4.8-10.8)
[2018-06-21] MEDS ORDERED: Morphine 4 MG/ML VIAL IVP STA (22:05)
[2018-06-21 22:22] LABS: ALB/GLOB RATIO 0.6 (1.0-2.1); ALBUMIN 2.9 g/dL (3.5-5.0); CALCIUM 7.9 mg/dL (8.4-10.2)
[2018-06-22] MEDS ORDERED: Sodium Chloride 0.9% 1,000 ML IV STA (00:35)
--- NOTE | 2018-06-22 02:14 | CP.PCM.HP ---
<Adrianna Tiptonsuyapa - Last Filed: 06/22/18 03:59> History of Present Illness - History of Present Illness History of Present Illness: 68 year old male with terminal adrenal cancer presented to ED due to intractable pain. He was at home and began having pain that was not alleviated by oxycodone therefore patient was brought in to ED. He is accompanied by his family. ED provider had discussion with family about code status and decision was made to make patient DNR/DNI. Patient is writing in pain in bed. PMHx: HTN, Cirrhosis, Adrenal hemorrhage, B/L Renal masses, Myogenic sarcoma, hx of Pancreatitis ALL: NKDA Surgical Hx: denies Social: Hx of tobacco abuse, former ETOH abuse, denies drugs FamilyHx: unknown hx obtained from daughter and medical chart. Present on Admission - Present on Admission Any Indicators Present on Admission: No Review of Systems - Review of Systems Systems not reviewed;Unavailable: Acuity of Condition, Unstable Vital Signs, Re spiratory Distress Past Patient History - Infectious Disease Hx of Infectious Diseases: None - Past Medical History & Family History Past Medical History?: Yes - Past Social History Smoking Status: Never Smoked - CARDIAC Hx Hypertension: Yes - ENDOCRINE/METABOLIC Other/Comment: adrenal mass - HEMATOLOGICAL/ONCOLOGICAL Hx Anemia: Yes - MUSCULOSKELETAL/RHEUMATOLOGICAL Hx Musculoskeletal Disorders: Yes Hx Falls: Yes - GASTROINTESTINAL Hx Pancreatitis: Yes - PSYCHIATRIC Hx Anxiety: No - SURGICAL HISTORY Other/Comment: left kidney biopsy,bilateral adrenal mass bx - ANESTHESIA Hx Anesthesia: Yes Hx Anesthesia Reactions: No Meds Allergies/Adverse Reactions: Allergies Allergy/AdvReac Type Severity Reaction Status Date / Time No Known Allergies Allergy Verified 06/01/18 04:57 Physical Exam - Constitutional Appears: In Acute Distress (secondary to pain), Agitated, Chronically Ill - Respiratory Exam Respiratory Exam: Respiratory Distress - Cardiovascular Exam Cardiovascular Exam: Tachycardia (hypotensiev) - Neurological Exam Neurological exam: Altered - Psychiatric Exam Psychiatric exam: Agitated - Skin Skin Exam: Dry, Intact, Normal Color Results - Vital Signs Recent Vital Signs: Last Vital Signs Temp 97.2 F L 06/22/18 01:03 Pulse 88 06/22/18 01:03 Resp 18 06/22/18 01:03 BP 84/39 L 06/22/18 01:03 Pulse Ox 99 06/22/18 01:26 - Labs Result Diagrams: 06/21/18 21:50 06/21/18 21:50 Labs: Laboratory Results - last 24 hr 06/21/18 06/21/18 06/21/18 21:50 21:50 21:50 WBC 8.3 RBC 3.14 L Hgb 10.3 L Hct 31.9 L MCV 101.4 H D MCH 32.8 H MCHC 32.3 L RDW 23.1 H Plt Count 99 L MPV 8.2 Neut % (Auto) 71.8 Lymph % (Auto) 13.4 L [place] % (Auto) 13.6 H Eos % (Auto) 1.0 Baso % (Auto) 0.2 Neut # (Auto) 6.0 Lymph # (Auto) 1.1 [place] # (Auto) 1.1 H Eos # (Auto) 0.1 Baso # (Auto) 0.0 Sodium 132 Potassium 5.7 H Chloride 101 Carbon Dioxide 18 L Anion Gap 19 BUN 88 H Creatinine 2.3 H Est GFR ( Amer) 34 Est GFR (Non-Af Amer) 28 Random Glucose 60 L Lactic Acid 2.8 H Calcium 7.9 L Total Bilirubin 5.0 H AST 151 H D ALT 31 Alkaline Phosphatase 64 Total Protein 7.6 Albumin 2.9 L Globulin 4.7 H Albumin/Globulin Ratio 0.6 L Lipase 66 Assessment & Plan (1) Comfort measures only status Assessment and Plan: 68 year old male admitted for comfort care secondary to terminal cancer. Patient agitated and in acute distress secondary to pain. Pt is DNR/DNI. -comfort measures -morphine drip -ativan prn agitation -O2 prn -wong Case discussed with attending. Patient seen with attending. Status: Acute <Mohamud Washington - Last Filed: 06/22/18 06:17> Results - Vital Signs Recent Vital Signs: Last Vital Signs Temp 97.4 F L 06/22/18 03:00 Pulse 88 06/22/18 03:14 Resp 18 06/22/18 03:14 BP 94/58 L 06/22/18 03:00 Pulse Ox 97 06/22/18 03:14 - Labs Result Diagrams: 06/21/18 21:50 06/21/18 21:50 Labs: Laboratory Results - last 24 hr 06/21/18 06/21/18 06/21/18 21:50 21:50 21:50 WBC 8.3 RBC 3.14 L Hgb 10.3 L Hct 31.9 L MCV 101.4 H D MCH 32.8 H MCHC 32.3 L RDW 23.1 H Plt Count 99 L MPV 8.2 Neut % (Auto) 71.8 Lymph % (Auto) 13.4 L [place] % (Auto) 13.6 H Eos % (Auto) 1.0 Baso % (Auto) 0.2 Neut # (Auto) 6.0 Lymph # (Auto) 1.1 [place] # (Auto) 1.1 H Eos # (Auto) 0.1 Baso # (Auto) 0.0 Sodium 132 Potassium 5.7 H Chloride 101 Carbon Dioxide 18 L Anion Gap 19 BUN 88 H Creatinine 2.3 H Est GFR ( Amer) 34 Est GFR (Non-Af Amer) 28 Random Glucose 60 L Lactic Acid 2.8 H Calcium 7.9 L Total Bilirubin 5.0 H AST 151 H D ALT 31 Alkaline Phosphatase 64 Total Protein 7.6 Albumin 2.9 L Globulin 4.7 H Albumin/Globulin Ratio 0.6 L Lipase 66 Attending/Attestation - Attestation I have personally seen and examined this patient.: Yes I have fully participated in the care of the patient.: Yes I have reviewed all pertinent clinical information: Yes Notes (Text): Patient seen and examined with the resident, agree with above Patient admitted with end stage malignancy for comfort care measures as he was unable to get pain medication at home Daughter at bedside confirms comfort care measures, DNR/DNI status
[2018-06-22] MEDS ORDERED: Morphine 100 MG in Sodium Chloride 0.9% 100 ML IV SCH ×2 (02:30→04:00)
--- NOTE | 2018-06-22 07:58 | RAD ---
Date of service: 06/21/2018 HISTORY: clearance COMPARISON: Frontal chest radiograph 06/17/2018. FINDINGS: LUNGS: Right hilar/suprahilar mass reiterated with left hemidiaphragm remaining silhouetted likely from atelectasis though infiltrate is not excluded. No right-sided infiltrate. Limited linear atelectasis right base. PLEURA: No significant pleural effusion identified, no pneumothorax apparent. CARDIOVASCULAR: No atherosclerotic calcification present Cardiomediastinal silhouette appears stable. No pulmonary vascular congestion. OSSEOUS STRUCTURES: No significant abnormalities. VISUALIZED UPPER ABDOMEN: Normal. OTHER FINDINGS: None. IMPRESSION: Limited left basilar atelectasis or possible infiltrate unchanged. Right hilar/suprahilar mass reiterated as well. No right-sided infiltrate.
--- NOTE | 2018-06-22 09:08 | CP.PCM.PN ---
<Gita Ignacio - Last Filed: 06/22/18 16:21> Subjective - Date & Time of Evaluation Date of Evaluation: 06/22/18 Time of Evaluation: 08:00 - Subjective Subjective: No acute overnight events. Pt on comfort measures pain controlled with pain medicine. Pt hasn't ate in 3 days. Denies nausea, vomiting, chest pain, SOB. Objective - Vital Signs/Intake and Output Vital Signs (last 24 hours): Temp Pulse Resp BP Pulse Ox 97.5 F L 71 19 89/55 L 95 06/22/18 08:00 06/22/18 08:00 06/22/18 08:00 06/22/18 08:00 06/22/18 08:00 - Medications Medications: Current Medications Morphine Sulfate 100 mg/ (Sodium Chloride) 110 mls @ 3.3 mls/hr IV .Q24H [facility]; Protocol Last Admin: 06/22/18 04:31 Dose: 3.3 mls/hr Lorazepam (Ativan) 2 mg IVP Q1 PRN PRN Reason: Agitation Ondansetron HCl (Zofran Inj) 4 mg IVP Q4 PRN PRN Reason: Nausea/Vomiting - Labs Labs: 06/21/18 21:50 06/21/18 21:50 - Constitutional Appears: Non-toxic, No Acute Distress, Chronically Ill, Other (Lethargic) - Head Exam Head Exam: ATRAUMATIC, NORMAL INSPECTION, NORMOCEPHALIC - Eye Exam Eye Exam: EOMI, PERRL - ENT Exam ENT Exam: Mucous Membranes Moist - Respiratory Exam Respiratory Exam: Clear to Ausculation Bilateral - Cardiovascular Exam Cardiovascular Exam: RRR, +S1, +S2 - GI/Abdominal Exam GI & Abdominal Exam: Soft, Normal Bowel Sounds - Neurological Exam Neurological Exam: Awake Assessment and Plan - Assessment and Plan (Free Text) Assessment: 68 year old M admitted for comfort care secondary to terminal cancer. 1. Terminal cancer -Comfort measures -Morphine 100mg @110mls -Ativan 2mg IVP prn agitation -O2 prn -Rice -IVF's- NaCl 2. Code Status -DNR/DNI <Samreen Alejandra - Last Filed: 06/23/18 11:20> Objective - Vital Signs/Intake and Output Vital Signs (last 24 hours): Temp Pulse Resp BP Pulse Ox 97.5 F L 80 20 90/57 L 98 06/22/18 17:10 06/22/18 17:10 06/22/18 17:10 06/22/18 17:10 06/22/18 17:10 - Labs Labs: 06/21/18 21:50 06/21/18 21:50 Attending/Attestation - Attestation I have personally seen and examined this patient.: Yes I have fully participated in the care of the patient.: Yes I have reviewed all pertinent clinical information, including history, physical exam and plan: Yes Notes (Text): 06/23/18 11:20 Agree with findings and plan as above. Comfort measures in place.
--- NOTE | 2018-06-22 09:37 | CARD ---
APPROVED REPORT Date of service: 06/21/2018 EKG Measurement Heart [id number] <Conclusion> Normal sinus rhythm Low voltage QRS Cannot rule out Anterior infarct, age undetermined Abnormal ECG
[2018-06-22] MEDS ORDERED: Dextrose 5%/0.45% NS 1,000 ML IV SCH (14:15)
[2018-06-22 14:29] LABS: SQUAMOUS EPITHIAL < 1 /hpf (0-5); URINE AMORPHOUS SEDIMENT RARE /ul (<OCC); URINE BILIRUBIN NEGATIVE (NEGATIVE); URINE BLOOD NEGATIVE (NEGATIVE); URINE CLARITY SLIGHTY-CLOUDY (Clear); URINE COLOR AMBER (YELLOW); URINE GLUCOSE (UA) NEG (Normal); URINE HYALINE CAST >20 /hpf (0-2); URINE LEUKOCYTE ESTERASE NEG Leu/uL (Negative); URINE PROTEIN 30 mg/dL (NEGATIVE)
[2018-06-22 17:11] VITALS: BP 90/57; PULSE 80; RESP 20; TEMP 97.5; O2SAT 98
--- NOTE | 2018-06-22 22:03 | CP.PCM.PRO ---
Pronouncement of Note - Clinical Findings Physical Exam: No Response Verbal/Painful Stimuli, Absent Peripheral Puls es{Carotid & Femoral}, Absent Heart & Breath Sounds, No Pupillary Light Reflex, No Corneal Reflex, Pupils Fixed & Dilated, Absence of Vital Signs - Pronouncement Time Time of Pronouncement of : 21:10 - Notifications Pronouncement Notifications: Family Notified, Atending Notified [employer] Signal [employer] Switch Operator Notified: No - Autopsy Autopsy Requested: No [place] [id number] Additional Comments: This patient was a DNR/DNI
--- NOTE | 2018-06-22 23:19 | CP.PCM.DIS ---
Provider - Provider Date of Admission: 06/22/18 01:00 Attending physician: Mohamud Washington Primary care physician: None Consults: None Time Spent in preparation of Discharge (in minutes): 20 Diagnosis - Discharge Diagnosis (1) Hyperkalemia Status: Acute (2) Adrenal gland cancer Status: Acute (3) Intractable pain Status: Acute (4) Liver cirrhosis Status: Chronic (5) Acute kidney failure Status: Acute Hospital Course - Lab Results Lab Results: Most Recent Lab Values WBC 8.3 K/uL (4.8-10.8) 06/21/18 21:50 RBC 3.14 Mil/uL (4.40-5.90) L 06/21/18 21:50 Hgb 10.3 g/dL (12.0-18.0) L 06/21/18 21:50 Hct 31.9 % (35.0-51.0) L 06/21/18 21:50 MCV 101.4 fl (80.0-94.0) H D 06/21/18 21:50 MCH 32.8 pg (27.0-31.0) H 06/21/18 21:50 MCHC 32.3 g/dL (33.0-37.0) L 06/21/18 21:50 RDW 23.1 % (11.5-14.5) H 06/21/18 21:50 Plt Count 99 K/uL (130-400) L 06/21/18 21:50 MPV 8.2 fl (7.2-11.7) 06/21/18 21:50 Neut % (Auto) 71.8 % (50.0-75.0) 06/21/18 21:50 Lymph % (Auto) 13.4 % (20.0-40.0) L 06/21/18 21:50 Calloway % (Auto) 13.6 % (0.0-10.0) H 06/21/18 21:50 Eos % (Auto) 1.0 % (0.0-4.0) 06/21/18 21:50 Baso % (Auto) 0.2 % (0.0-2.0) 06/21/18 21:50 Neut # (Auto) 6.0 K/uL (1.8-7.0) 06/21/18 21:50 Lymph # (Auto) 1.1 K/uL (1.0-4.3) 06/21/18 21:50 Calloway # (Auto) 1.1 K/uL (0.0-0.8) H 06/21/18 21:50 Eos # (Auto) 0.1 K/uL (0.0-0.7) 06/21/18 21:50 Baso # (Auto) 0.0 K/uL (0.0-0.2) 06/21/18 21:50 Sodium 132 mmol/l (132-148) 06/21/18 21:50 Potassium 5.7 MMOL/L (3.6-5.0) H 06/21/18 21:50 Chloride 101 mmol/L (98-107) 06/21/18 21:50 Carbon Dioxide 18 mmol/L (22-30) L 06/21/18 21:50 Anion Gap 19 (10-20) 06/21/18 21:50 BUN 88 mg/dl (9-20) H 06/21/18 21:50 Creatinine 2.3 mg/dl (0.8-1.5) H 06/21/18 21:50 Est GFR ( Amer) 34 06/21/18 21:50 Est GFR (Non-Af Amer) 28 06/21/18 21:50 Random Glucose 60 mg/dL (75-110) L 06/21/18 21:50 Lactic Acid 2.8 MMOL/L (0.7-2.1) H 06/21/18 21:50 Calcium 7.9 mg/dL (8.4-10.2) L 06/21/18 21:50 Total Bilirubin 5.0 mg/dl (0.2-1.3) H 06/21/18 21:50 AST 151 U/L (17-59) H D 06/21/18 21:50 ALT 31 U/L (21-72) 06/21/18 21:50 Alkaline Phosphatase 64 U/L (38-126) 06/21/18 21:50 Total Protein 7.6 G/DL (6.3-8.2) 06/21/18 21:50 Albumin 2.9 g/dL (3.5-5.0) L 06/21/18 21:50 Globulin 4.7 gm/dL (2.2-3.9) H 06/21/18 21:50 Albumin/Globulin Ratio 0.6 (1.0-2.1) L 06/21/18 21:50 Lipase 66 U/L (23-300) 06/21/18 21:50 Urine Color Sravani (YELLOW) 06/22/18 14:00 Urine Clarity Slighty-cloudy (Clear) 06/22/18 14:00 Urine pH 5.0 (5.0-8.0) 06/22/18 14:00 Ur Specific Fisk 1.018 (1.003-1.030) 06/22/18 14:00 Urine Protein 30 mg/dL (NEGATIVE) 06/22/18 14:00 Urine Glucose (UA) Neg mg/dL (Normal) 06/22/18 14:00 Urine Ketones Negative mg/dL (NEGATIVE) 06/22/18 14:00 Urine Blood Negative (NEGATIVE) 06/22/18 14:00 Urine Nitrate Negative (NEGATIVE) 06/22/18 14:00 Urine Bilirubin Negative (NEGATIVE) 06/22/18 14:00 Urine Urobilinogen 4.0 mg/dL (0.2-1.0) 06/22/18 14:00 Ur Leukocyte Esterase Neg Johnathan/uL (Negative) 06/22/18 14:00 Urine RBC (Auto) 1 /hpf (0-3) 06/22/18 14:00 Urine Microscopic WBC 2 /hpf (0-5) 06/22/18 14:00 Ur Squamous Epith Cells < 1 /hpf (0-5) 06/22/18 14:00 Amorphous Sediment Rare /ul (<OCC) H 06/22/18 14:00 Hyaline Casts >20 /hpf (0-2) H 06/22/18 14:00 - Hospital Course Hospital Course: This is a 69 years old male with terminal adrenal cancer with biopsy done 05/09/18 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 he came to the ED with intractable abdominal pain not relieved with Oxycodone. He was admitted for comfort care and was made DNI/DNR. The patient was in severe pain in bed. He was started on a low dose Morphine drip adjusted to pain relief. The nurse called tonight to have the patient evaluated as he was in cardiopulmonary arrest. Examination found no spontaneous respiration, no peripheral nor central pulses, No corneal reflex, doll's eye nor Pupilary reaction to light. The Patient was pronounced at 21:10 The Certificate was written. Cause of was noted as: #. Adrenal Gland Cancer Other diagnosis included: Intractable abdominal pain Adrenal Insufficiency Liver Cirrhosis Macrocytic Anemia Acute Renal Failure Hyperkalemia Ho Monzon MD - Date & Time of H&P Date of H&P: 06/22/18 Time of H&P: 02:12 Discharge Exam - Head Exam Head Exam: ATRAUMATIC, NORMAL INSPECTION, NORMOCEPHALIC Discharge Plan - Follow Up Plan Condition: Disposition: WITH WITHOUT AUTOPSY Patient education suggested?: No Instructions: Cirrhosis, Weakness (ED)
== END 2018-06-23 00:10 | DRG 948 ==
LOC: H.ER 21:03 → H.ERHOLD 06-22 01:00 → H.MEDSURG1 06-22 02:47
PROVIDERS: ADMIT Hospitalist; ATTEND Hospitalist
DX: G89.3 Neoplasm related pain (acute) (chronic) (principal); C74.90 Malignant neoplasm of unspecified part of unspecified adrenal gland; N17.9 Acute kidney failure, unspecified; E27.49 Other adrenocortical insufficiency; I10 Essential (primary) hypertension; I46.9 Cardiac arrest, cause unspecified; K74.60 Unspecified cirrhosis of liver; Z51.5 Encounter for palliative care; Z66 Do not resuscitate; Z85.528 Personal history of other malignant neoplasm of kidney; Z87.891 Personal history of nicotine dependence; F10.10 Alcohol abuse, uncomplicated; Z87.19 Personal history of other diseases of the digestive system; D53.9 Nutritional anemia, unspecified; E87.5 Hyperkalemia; Z85.831 Personal history of malignant neoplasm of soft tissue